=== PATIENT | female | born 1975 | race Caucasian/White ===

== ENCOUNTER 2016-05-19 07:53 | Observation (INO) | payer OTHER ==
[~2016-05-19] VITALS: Ht 165.1 cm; Wt 96.3 kg
[2016-05-19] VITALS (8 sets, daily range): BP systolic 121–175; BP diastolic 59–101; PULSE 84–129; RESP 13–20; O2SAT 97–100
[~2016-05-19 07:53] MED LIST: ACET250T4 PO; CHOL40003 PO; INSU100C8 SUBQ; INSU100V7 SUBQ; LEVO200T6 PO; MULT-666 PO; VENL150C98 PO
[2016-05-19] MEDS ORDERED: 0.9% Sodium Chloride 1,000 ML IV ONE ×2 (08:09→12:18)
--- NOTE | 2016-05-19 08:09 | ED.REPORT ---
HPI-NVD Date of Service May 19, 2016 ED Provider: Krista Romero MD A 40 year old female with a history of Type I diabetes, HTN, hypothyroidism, and migraines presents to the ED complaining of severe vomiting and generalized body pain onset 16 hours ago. Associated symptoms include fever, throat pain, and esophageal pain related to the vomit. She can not recall if she has had chills. Per nurse her sugar is 500 and 585 and Phenergan works fine. She takes diabetes medication in the morning. Patient reports that they would administer 5 units if her blood sugar was 500 at home. The members of her household have been sick. She denies being due to past bilateral tubal ligation surgery. Nursing Notes Stated Complaint: VOMITING Chief Complaint: Female Abdominal Pain Nursing Notes Reviewed: Yes Allergies: Coded Allergies: No Known Allergies (Verified , 05/19/16) Scheduled Acetazolamide (Acetazolamide) 250 Mg Tablet 500 MG PO QAM Acetazolamide (Acetazolamide) 250 Mg Tablet 250 MG PO HS Cholecalciferol (Vitamin D3) (Vitamin D3) 2,000 Unit Tablet 2,000 UNIT PO DAILY Fluoxetine (Fluoxetine) 20 Mg Capsule 20 MG PO QAM Insulin Glargine (Lantus U100 Insulin Vial) 100 Unit/Ml Vial 38 UNIT SUBQ AM Levothyroxine (Levothyroxine) 200 Mcg Tablet 200 MCG PO DAILY Multivitamin (Once Daily) 1 Each Tablet 1 EACH PO DAILY Scheduled PRN Insulin Aspart (NovoLOG U100 Insulin Vial) 100 U/Ml U 1-7 UNIT SUBQ TID PRN PRN sliding scale patient's own sliding scale General Time Seen by MD: 08:08 Chief Complaint Vomiting Hx Obtained From: Patient Arrived By: Walk-in Onset Occurred: 13 - 16 hours ago Symptom Duration: Constant Severity: Current: Moderate Severity: Maximum: Moderate Recent Healthcare: No recent doctor visit Similar Sx Previous: No Past Medical History Past Medical History Pseudo tumor cerebri hypothyroidism migraines Reports: Diabetes mellitus (Type 1), Hypertension Past Surgical History Lasix surgery ACL replacement x2 BTL Family History noncontributory Smoking History Never Smoker Social History Alcohol Use: Denies alcohol use Drug Use: Denies drug use Other Social History: Good social support, Local resident Ambulatory Status Independent Review of Systems Review of Systems Note: pain in throat related to vomiting. Constitutional: Reports: Fever, Denies: Chills GI: Reports: Vomiting Complete sys rev & neg: except as marked. Female: Denies: Physical Exam Physical Exam Notes: Initial Vital Signs Vital Signs (First) Date Time Temp Pulse Resp B/P Pulse Ox O2 Delivery O2 Flow Rate FiO2 05/19/16 07:58 35.8 129 20 175/101 100 05/19/16 09:05 05/19/16 11:12 Room Air Initial VS: Reviewed General/Constitutional: Awake, Alert Upon initial physical exam, patient is acutely ill, pale and vomiting. Abdomen: Soft, BS normoactive Good perfusion. Petechia in throat from vomiting. Minor erythema along posterior pharynx from vomiting. Muscous memrane dry. Respiratory / Chest: Atraumatic, Breath sounds NL, Breath sounds = bilat, No respiratory distress, No rales, No rhonchi Heart Rate / Rhythm: Positive: Tachycardia Back: Atraumatic, Full range of motion Skin: Atraumatic, Warm, Dry Neurologic: Oriented X3, Speech NL Head / Eyes: Normocephalic, PERRL, EOMI Small scratch along filitrim. Neck: Atraumatic, Full range of motion Upper Extremity / MS: Atraumatic, Full range of motion Wrist / Hand: Atraumatic, Full range of motion Lower Extremity / Pelvis / MS: Atraumatic, Full range of motion Ankle / Foot: No swelling (No swelling in ankles or other areas. ) Interpretation & Diagnostics Interpretation & Diagnostics: Blood Gas Report, 0826 (venous) pH 7.420 pCO2 26 pO2 40.6 cHCO3 - (p) 16.8 cBase (B) -5.7 Anion Gap= 32 Lab Results Interpretation Result Diagram: 05/19/16 0815 05/19/16 1300 Test 05/19/16 08:15 05/19/16 12:06 05/19/16 13:00 White Blood Count 18.7th/mm3 (3.8-10.1) Red Blood Count 4.74mil/mm3 (3.90-5.20) Hemoglobin 14.5g/dL (12.0-15.6) Hematocrit 41.4% (35.0-46.0) Mean Corpuscular Volume 87.3fL (81-100) Mean Corpuscular Hemoglobin 30.6pg (27.0-35.0) Mean Corpuscular Hemoglobin Concent 35.0% (32.0-37.0) Red Cell Distribution Width 12.1% (12.3-15.4) Platelet Count 339bil/L (150-400) Neutrophils (%) (Auto) 93.8% (40-74) Lymphocytes (%) (Auto) 3.3% (14-46) Monocytes (%) (Auto) 2.5% (4-12) Eosinophils (%) (Auto) 0% (0-5) Basophils (%) (Auto) 0.1% (0-3) Magnesium Level 1.8mg/dL (1.6-2.6) Total Bilirubin 0.7mg/dL (0.0-1.2) Aspartate Amino Transf (AST/SGOT) 19U/L (0-50) Alanine Aminotransferase (ALT/SGPT) 16U/L (0-32) Alkaline Phosphatase 128U/L (25-150) Total Protein 8.4g/dL (6.4-8.4) Albumin 5.0g/dL (3.4-5.0) Lipase 24U/L (13-60) Hold Urine Received (Received) Sodium Level 138mEq/L (134-144) Potassium Level 3.1mEq/L (3.5-5.2) Chloride Level 98mEq/L (97-108) Carbon Dioxide Level 19mmol/L (18-29) Blood Urea Nitrogen 23mg/dL (6-20) Creatinine 0.77mg/dL (0.57-1.00) Estimat Glomerular Filtration Rate 120mL/min (>59) Glucose Level 251mg/dL (60-99) Calcium Level 8.3mg/dL (8.5-10.1) ECG Interpretation ECG Interpretation: Rate is 113. Sinus Tachycardia. Borderline T abnormalities, diffuse leads. Time: 10:06 Interpreted by: ED physician Re-Eval/Medical Decision Med Decision/Clinical Course Presents with 18 hours of vomiting. Significantly dehydrated. Elevated blood sugar and initial anion gap is 31. After 3 days of hydration usual morning Lantus and an additional 10 units of IV insulin her blood sugar is sensitive to 50 range her anion gap has closed to the 21 range however she continues to feel nauseated and significantly dizzy when she stands up. Opted for at least overnight admission to make sure that her gap closes completely and she is rehydrated and we have appropriately helped with the presumed viral gastroenteritis that started all of her symptoms No evidence or suggestion for acute vomiting infection pneumonia and pancreatitis and biliary colic or appendicitis or other life-threatening issues at this point Source of Hx: Old records Re-Evaluation/Progress : Time of Eval: 12:05 Re-Evaluation/Progress Note: Rechecked patient. She reports that she has urinated describing it as being darker than normal. She reports that she has not thrown up and that nausea has decreased. Counseled Regarding: Diagnosis, Lab results, When/why to return to ED Discharge & Departure Impression: Primary Impression: Intractable vomiting Additional Impressions: DKA (diabetic ketoacidoses) Diabetes mellitus type I Disposition: ADMITTED TO HOSPITAL Discharge Condition All VS Reviewed: Yes Condition: Improved Referrals: Tiffanie Richard (PCP) [place] Attestation Portions of this note were transcribed by Yobany Holland. I, Dr. Romero, personally performed the history, physical exam, and medical decision-making: I reviewed and confirmed the accuracy for the information in the transcribed note. Signed by: marietta Waggoner, 05/19/16 1535. copies to: Tiffanie Richard Shawna L MD May 19, 2016 08:09 Yobany Holland May 19, 2016 08:22 Krista Romero MD May 19, 2016 08:09 Yobany Holland May 19, 2016 08:22
[2016-05-19] MEDS ORDERED: Ondansetron 2 mg/mL 2 mL Inj IVPUSH ONE (08:10)
[2016-05-19] MEDS ORDERED: 0.9% Sodium Chloride 1,000 ML IV STA (08:17)
[2016-05-19] MEDS ORDERED: Promethazine Inj 25 MG in Dextrose 5%-Pha MIX 50 ML IV ONE (08:20)
[2016-05-19] MEDS ORDERED: Insulin GLARgine 100 Unit/mL Syringe SUBQ ONE ×2 (08:20→20:20)
[2016-05-19] MEDS ORDERED: Insulin Human REGular-Omnicell 100 Unit/mL IV ONE ×2 (08:20→12:20)
[2016-05-19] MEDS ORDERED: HYDROmorphone 1 mg/mL Inj IVPUSH ONE (08:20)
[2016-05-19 08:26] LABS: BASOPHILS % (AUTO) 0.1 % (0-3); EOSINOPHILS % (AUTO) 0 % (0-5); MONOCYTES % (AUTO) 2.5 % (4-12); Mean Corpuscular Hemoglobin 30.6 pg (27.0-35.0); Mean Corpuscular Volume 87.3 fL (81-100); NEUTROPHILS % (AUTO) 93.8 % (40-74); Platelet Count 339 bil/L (150-400)
--- NOTE | 2016-05-19 08:32 | ABG ---
DateTimeAnalyzed 08:26:00 -_ pH ____7.420 - pCO2 ___26.4__ -mmHg pO2 ___40.6__ -mmHg HCO3- ___16.8__ -mmol/L ABE ___-5.7__ -mmol/L tHb ___14.5__ -g/dL O2Hb ___79.5__ -% COHb ____2.2__ -% MetHb ____1.0__ -% sO2 ___82.1__ -% FIO2 ___21.0__ -% Drawn By RN - Date/Time Notified____ 08:32:00 -_ Notified By JJ - Notified Whom DR LAURSEN - B 752 -mmHg tO2 ___16.1__ -Vol%
[2016-05-19 08:45] LABS: Magnesium 1.8 mg/dL (1.6-2.6)
[2016-05-19] MEDS ORDERED: Promethazine Inj 25 MG in 0.9% Sodium Chloride 50 ML IV ONE (12:20)
[2016-05-19] MEDS ORDERED: FLUO20CA25 PO (13:58)
[2016-05-19] MEDS ORDERED: ACET250T4 PO ×2 (13:58)
[2016-05-19] MEDS ORDERED: CHOL200025 PO (13:58)
[2016-05-19] MEDS: 0.9% Sodium Chloride 1,000 ML IV SCH ×4 (15:34→21:34)
[2016-05-19] MEDS ORDERED: Alum-Mag Hydrox-Simeth 30 mL Suspension PO PRN (15:35)
[2016-05-19] MEDS ORDERED: Ondansetron 2 mg/mL 2 mL Inj IVPUSH PRN ×2 (15:35→16:45)
[2016-05-19] MEDS ORDERED: Senna-Docusate 8.6-50 mg Tablet PO PRN (16:45)
[2016-05-19] MEDS ORDERED: Dextrose 5% 0.9% NaCl 1,000 ML IV SCH (16:45)
[2016-05-19] MEDS ORDERED: Polyethylene Glycol (PEG) 17 Gm Powder PO PRN (16:45)
[2016-05-19] MEDS ORDERED: Potassium Chloride Inj 20 MEQ in Dextrose 5% 250 ML IV ONE (16:45)
[2016-05-19] MEDS ORDERED: Glucose 40% Oral Gel 15 Gm Tube PO PRN (16:45)
--- NOTE | 2016-05-19 17:15 | PCM.HPMED ---
Subjective Date of Service May 19, 2016 Primary Provider: Admitting Physician: Ander Valadez MD Primary Care Physician: Tiffanie Richard Attending Physician: Ander Valadez MD Admit Status: From the Emergency Department, Full Admit, Admit to Yellow Team Chief Complaint: Nausea, vomiting. Hyperglycemia. History of Present Illness: This is a 40-year-old female history of DM type I. She presents now with several day history of URI symptoms including rhinorrhea and a dry cough. 2 children and her entire family has been ill. Today she developed hyperglycemia as well as acute nausea with repeated vomiting. She has a takes 34 units of Lantus once a day with correctional and nutritional lispro. She acted normal doses of insulin yesterday. She was found in the ER to be hypotensive and volume depleted as well as hyperglycemic. Her nasal initial pH was 74 however she had a PCO2 of 20 and a bicarbonate of 6 indicating a compensated metabolic acidosis. She was given IV fluids and developed a hypokalemia in the ED. She was also given IV insulin. She historically has no retinopathy, nephropathy, or neuropathy. She has had multiple instances of DKA in the past when she is ill. She is currently feeling free of nausea. She feels much improved with fluid resuscitation. She is afebrile. Review of Systems: No visual changes or hearing loss. She denies fevers chills rhinitis. No headache currently. No hematuria or dysuria. She denies any shortness of breath or productive cough. No abdominal pain. No diarrhea. Also reviewed and otherwise negative except as noted in history of present illness. Allergies Coded Allergies: No Known Allergies (Verified , 05/19/16) Home Medications Acetazolamide (Acetazolamide) 250 Mg Tablet 500 MG PO QAM Acetazolamide (Acetazolamide) 250 Mg Tablet 250 MG PO HS Cholecalciferol (Vitamin D3) (Vitamin D3) 2,000 Unit Tablet 2,000 UNIT PO DAILY Fluoxetine (Fluoxetine) 20 Mg Capsule 20 MG PO QAM Insulin Glargine (Lantus U100 Insulin Vial) 100 Unit/Ml Vial 38 UNIT SUBQ AM Levothyroxine (Levothyroxine) 200 Mcg Tablet 200 MCG PO DAILY Multivitamin (Once Daily) 1 Each Tablet 1 EACH PO DAILY PMH 1. DM 1. 2. Hypothyroidism 3. Migraine headaches. Surgical History section Bilateral knee arthroscopy. Family History Negative for diabetes Social History Hx Alcohol Use: Yes Hx Substance Use: No Hx Tobacco Use: No Smoking Status: Never Smoker Living Arrangement: with Family Exam Vital Signs Vital Sign - Last Date Time Temp Pulse Resp B/P Pulse Ox O2 Delivery O2 Flow Rate FiO2 05/19/16 15:39 37.5 107 16 122/64 Room Air 05/19/16 13:35 99 05/19/16 09:05 Exam Alert oriented 3, no distress. Fluent speech. Normal skull Normal nose and ears, external Anicteric sclerae, symmetric pupils Normal oropharynx and mucosa. Neck is supple, normal thyroid, no adenopathy. Lungs are clear with normal rate and effort. Heart is regular without murmur gallop or rub Abdomen soft nontender. Extremities are free of edema. Pedal and radial pulses. Joints are not swollen or deformed. Skin is free of rash, lesions or ecchymosis. Muscles normal strength. Cranial nerves are intact. Normal affect Lab and Diagnostics Result Diagram: 05/19/16 0815 05/19/16 1300 Assessment & Plan 1. Probable DKA. POA. The patient presented with hyperglycemia vomiting Depletion and a compensated metabolic acidosis. Ketones were not checked. She was given IV insulin and fluid resuscitated and now has closed or improved her gap. At this point we will fluid resuscitate her and give her high correctional lispro as well as checking a ketone. She still may require an insulin drip tonight. 2. Recent URI symptoms, POA. We will check a chest x-ray rule out pneumonia as well as adult respiratory PCR panel. 3. Volume depletion, POA. Fluid resuscitation with normal saline. 4. Hypokalemia, POA. We will replete and follow closely 5. Chronic hypothyroidism, POA. Usual medications. She is full resuscitation clarified at time of admit Inpatient status with the expected length of stay over 2 nights Pain Evaluation: Adequate Pain Control Resuscitation Status: CPR: Attempt Resuscitation Time spent 40 minutes Ander Valadez MD May 19, 2016 17:15
[2016-05-19] MEDS: Insulin LISPRO 300 Unit/3 mL Inj SUBQ SCH ×2 (17:30→21:40)
--- NOTE | 2016-05-19 18:08 | DRSVH ---
PROCEDURE: X-RAY CHEST ONE VIEW, PORTABLE ([id number]) INDICATIONS: cough TECHNIQUE: One view of the chest was acquired. COMPARISON: [facility], CR, CHEST 1VW, 08/31/2013, 10:31. [facility], [place], XR CHEST 2VW, 04/09/2015, 14:32. FINDINGS: Surgical changes and devices: None. Lungs and pleura: No pleural effusions or pneumothorax. Lungs are clear. Mediastinum: Mediastinal contours appear normal. Heart size is normal. Bones and chest wall: No suspicious bony lesions. Overlying soft tissues appear unremarkable. IMPRESSION: No acute pulmonary process. Dictated by: Georgette Gerber M.D. on 05/19/2016 at 18:06 Approved by: Georgette Gerber M.D. on 05/19/2016 at 18:06
[2016-05-19] MEDS ORDERED: Insulin GLARgine 100 Unit/mL Syringe SUBQ SCH (21:00)
[2016-05-20] MEDS ORDERED: KCl 40 mEq/500 mL D5W(K 3 - 3.7 & Creat < 2) IV ONE ×2 (00:10→06:45)
[2016-05-20 00:17] VITALS: BP 132/74; PULSE 81; RESP 18; O2SAT 98
[2016-05-20 04:28] VITALS: BP 131/78; PULSE 84; RESP 17; O2SAT 97
[2016-05-20] MEDS: 0.9% Sodium Chloride 1,000 ML IV SCH (06:19)
[2016-05-20 07:45] VITALS: BP 150/88; PULSE 86; RESP 19; O2SAT 99
[2016-05-20] MEDS ORDERED: Ondansetron 2 mg/mL 2 mL Inj IVPUSH PRN (08:30)
[2016-05-20] MEDS ORDERED: HYDROcodone-APAP 5-325 mg Tablet PO PRN (08:30)
[2016-05-20] MEDS ORDERED: Insulin GLARgine 100 Unit/mL Syringe SUBQ SCH (08:30)
--- NOTE | 2016-05-20 10:52 | PCM.DIMED ---
Discharge Instructions Date of Service May 20, 2016 Dates of Hospitalization May 19, 2016 at 14:41 Discharge Diagnosis Discharge Diagnosis 1. Probable DKA. 2. URI 3. Volume depletion 4. Hypokalemia 5. Chronic hypothyroidism 6. DM 1 Diet Diabetic Activity No restrictions Call your provider Fever or Chills, Shortness of breath Patient Instructions Follow-up Provider: Tiffanie Richard Follow-up with PCP in: 1 week Ander Valadez MD May 20, 2016 10:52
[2016-05-20] MEDS ORDERED: HYDR-4003 PO (10:53)
--- NOTE | 2016-05-20 10:59 | PCM.DC.MED ---
Discharge Summary Date of Service May 20, 2016 Dates of Hospitalization Date of Hospital Admission May 19, 2016 at 14:41 Date of Discharge: May 20, 2016 Providers: Admitting Physician: Jose Valadez MD Primary Care Physician: Tiffanie Richard Attending Physician: Jose Valadez MD Diagnosis at Time of Discharge Diagnosis at Time of Discharge 1. Probable DKA. 2. URI 3. Volume depletion 4. Hypokalemia 5. Chronic hypothyroidism 6. DM 1 Consultations None Procedures XRay, CTs & MRIs Chest x-ray unremarkable Other Diagnostics Adult respiratory PCR panel negative. Brief History This is a 40-year-old female history of DM type I. She presents now with several day history of URI symptoms including rhinorrhea and a dry cough. 2 children and her entire family has been ill. Today she developed hyperglycemia as well as acute nausea with repeated vomiting. She has a takes 34 units of Lantus once a day with correctional and nutritional lispro. She acted normal doses of insulin yesterday. She was found in the ER to be hypotensive and volume depleted as well as hyperglycemic. Her nasal initial pH was 74 however she had a PCO2 of 20 and a bicarbonate of 6 indicating a compensated metabolic acidosis. She was given IV fluids and developed a hypokalemia in the ED. She was also given IV insulin. She historically has no retinopathy, nephropathy, or neuropathy. She has had multiple instances of DKA in the past when she is ill. She is currently feeling free of nausea. She feels much improved with fluid resuscitation. She is afebrile. Hospital Course 1. Probable DKA. POA. The patient presented with hyperglycemia vomiting Depletion and a compensated metabolic acidosis. Ketones were not checked. She was given IV insulin and fluid resuscitated and now has closed or improved her gap. At this point we will fluid resuscitate her and give her high correctional lispro as well as checking a ketone. She still may require an insulin drip tonight. 2. Recent URI symptoms, POA. We will check a chest x-ray rule out pneumonia as well as adult respiratory PCR panel. 3. Volume depletion, POA. Fluid resuscitation with normal saline. 4. Hypokalemia, POA. We will replete and follow closely 5. Chronic hypothyroidism, POA. Usual medications. She is full resuscitation clarified at time of admit Inpatient status with the expected length of stay over 2 nights Hospital course. This patient was admitted after being treated in the ER for several hours with fluids and IV insulin. Breasts show pH is 7/4 PCO2 of 29 bicarbonate of 16 indicating a compensated metabolic acidosis. Ketones were not checked in the ER there checked about 6 hours layers were negative at this time. The patient was hyperglycemic was treated with IV insulin and then fluid resuscitated. She did develop hypokalemia which was repleted. The patient was transitioned to a cutaneous insulin in the evening of her admission and fluid resuscitation continued. Her potassium continued to be repleted in the morning of discharge. Her nausea and vomiting did improve. The day of discharge she was feeling mostly pain in the chest from coughing. No diarrhea. She is felt to be stable for discharge with close follow-up. Exam Vital Signs (Last) Date Time Temp Pulse Resp B/P Pulse Ox O2 Delivery O2 Flow Rate FiO2 05/20/16 07:45 36.9 86 19 150/88 99 Room Air 05/19/16 09:05 Exam Patient seen and examined in the day of discharge Test 05/19/16 08:15 05/19/16 12:06 05/19/16 13:00 05/20/16 05:30 White Blood Count 18.7th/mm3 (3.8-10.1) Red Blood Count 4.74mil/mm3 (3.90-5.20) Hemoglobin 14.5g/dL (12.0-15.6) Hematocrit 41.4% (35.0-46.0) Mean Corpuscular Volume 87.3fL (81-100) Mean Corpuscular Hemoglobin 30.6pg (27.0-35.0) Mean Corpuscular Hemoglobin Concent 35.0% (32.0-37.0) Red Cell Distribution Width 12.1% (12.3-15.4) Platelet Count 339bil/L (150-400) Neutrophils (%) (Auto) 93.8% (40-74) Lymphocytes (%) (Auto) 3.3% (14-46) Monocytes (%) (Auto) 2.5% (4-12) Eosinophils (%) (Auto) 0% (0-5) Basophils (%) (Auto) 0.1% (0-3) Hemoglobin A1c 9.2% (4.8-5.6) Magnesium Level 1.8mg/dL (1.6-2.6) Total Bilirubin 0.7mg/dL (0.0-1.2) Aspartate Amino Transf (AST/SGOT) 19U/L (0-50) Alanine Aminotransferase (ALT/SGPT) 16U/L (0-32) Alkaline Phosphatase 128U/L (25-150) Total Protein 8.4g/dL (6.4-8.4) Albumin 5.0g/dL (3.4-5.0) Lipase 24U/L (13-60) Hold Urine Received (Received) Ketones Negative (Negative) Sodium Level 139mEq/L (134-144) Potassium Level 3.3mEq/L (3.5-5.2) Chloride Level 106mEq/L (97-108) Carbon Dioxide Level 20mmol/L (18-29) Blood Urea Nitrogen 13mg/dL (6-20) Creatinine 0.69mg/dL (0.57-1.00) Estimat Glomerular Filtration Rate 136mL/min (>59) Glucose Level 107mg/dL (60-99) Calcium Level 7.5mg/dL (8.5-10.1) Discharge Medications Discharge Medications Acetazolamide (Acetazolamide) 250 Mg Tablet 500 MG PO QAM (Reported) Acetazolamide (Acetazolamide) 250 Mg Tablet 250 MG PO HS (Reported) Cholecalciferol (Vitamin D3) (Vitamin D3) 2,000 Unit Tablet 2,000 UNIT PO DAILY (Reported) Fluoxetine (Fluoxetine) 20 Mg Capsule 20 MG PO QAM (Reported) Insulin Glargine (Lantus U100 Insulin Vial) 100 Unit/Ml Vial 38 UNIT SUBQ AM ( Reported) Levothyroxine (Levothyroxine) 200 Mcg Tablet 200 MCG PO DAILY (Reported) Multivitamin (Once Daily) 1 Each Tablet 1 EACH PO DAILY (Reported) As needed Hydrocodone-Acetaminophen 5-325 mg (Hydrocodone-Acetaminophen 5-325 mg) 1 Each Tablet 2 TABLET PO Q4 PRN PRN For Moderate Pain Prescribed by: JOSE VALADEZ MD Insulin Aspart (NovoLOG U100 Insulin Vial) 100 U/Ml U 1-7 UNIT SUBQ TID PRN PRN sliding scale (Reported) patient's own sliding scale Followup Plan Disposition: Home, with family Discharge Diet: Diabetic Discharge Activity: No restrictions Follow-up Provider: Tiffanie Richard Follow-up with PCP in: 1 week Time spent 40 minutes Jose Valadez MD May 20, 2016 10:59
[2016-05-20] MEDS ORDERED: Potassium Citrate ER 10 mEq ER24 Tablet PO SCH (11:00)
[2016-05-20] MEDS: Insulin LISPRO 300 Unit/3 mL Inj SUBQ SCH ×2 (11:39→13:00)
== END 2016-05-20 13:50 | disposition home or self-care (01) ==
LOC: SED 07:53 → PCC 14:41 → INTOOBSV 14:41 → CCU 16:48 → PCC 23:49
PROVIDERS: ADMIT Hospitalist; ATTEND Hospitalist
DX: R11.2 Nausea with vomiting, unspecified (principal); E10.65 Type 1 diabetes mellitus with hyperglycemia; E86.9 Volume depletion, unspecified; E87.6 Hypokalemia; J06.9 Acute upper respiratory infection, unspecified; E03.9 Hypothyroidism, unspecified; G43.909 Migraine, unspecified, not intractable, without status migrainosus; Z79.4 Long term (current) use of insulin; Z79.899 Other long term (current) drug therapy

== ENCOUNTER 2016-11-24 08:17 | Inpatient (IN) | payer OTHER ==
[~2016-11-24] VITALS: Ht 165.1 cm; Wt 72.7 kg
[~2016-11-24 08:17] MED LIST changes: +CHOL200025 PO; -CHOL40003 PO; +FLUO20CA25 PO; +HYDR-4003 PO; -VENL150C98 PO
[2016-11-24 08:23] VITALS: BP 166/96; PULSE 129; RESP 23; O2SAT 99
[2016-11-24] MEDS ORDERED: Ondansetron 2 mg/mL 2 mL Inj IVPUSH PRN ×2 (08:35→10:30)
[2016-11-24] MEDS ORDERED: 0.9% Sodium Chloride 1,000 ML IV ONE (08:35)
[2016-11-24] MEDS ORDERED: MetoCLOpramide 5 mg/mL 2 mL Inj IVPUSH ONE (08:35)
--- NOTE | 2016-11-24 08:39 | ED.REPORT ---
HPI-Abd Pain F 40 and Over Date of Service Nov 24, 2016 ED Provider: Demetrius Valerio MD Pt is a 41 year old female with a history of type I DM who presents to the ED complaining of vomiting onset yesterday morning. She c/o associated nausea, abdominal pain, and low back pain. She denies hematuria, diarrhea, and dysuria. Per pt, she has not had a BM today. The pt reports that she did not experience abdominal or back pain until after she vomited. She has experienced similar symptoms previously when she was ill. Nursing Notes Stated Complaint: VOMITING Chief Complaint: Female Abdominal Pain Nursing Notes Reviewed: Yes Allergies: Coded Allergies: No Known Allergies (Verified , 11/24/16) Scheduled Acetazolamide (Acetazolamide) 250 Mg Tablet 500 MG PO QAM Acetazolamide (Acetazolamide) 250 Mg Tablet 250 MG PO HS Cholecalciferol (Vitamin D3) (Vitamin D3) 2,000 Unit Tablet 2,000 UNIT PO DAILY Fluoxetine (Fluoxetine) 20 Mg Capsule 20 MG PO QAM Insulin Glargine (Lantus U100 Insulin Vial) 100 Unit/Ml Vial 38 UNIT SUBQ AM Levothyroxine (Levothyroxine) 200 Mcg Tablet 200 MCG PO DAILY Multivitamin (Once Daily) 1 Each Tablet 1 EACH PO DAILY Scheduled PRN Hydrocodone-Acetaminophen 5-325 mg (Hydrocodone-Acetaminophen 5-325 mg) 1 Each Tablet 2 TABLET PO Q4 PRN PRN For Moderate Pain Insulin Aspart (NovoLOG U100 Insulin Vial) 100 U/Ml U 1-7 UNIT SUBQ TID PRN PRN sliding scale patient's own sliding scale General Time Seen by MD: 08:34 Chief Complaint Vomiting moderate Hx Obtained From: Patient Arrived By: Walk-in Sudden in Onset?: Yes Onset Occurred: Yesterday Symptom Duration: Since onset Location: : Diffuse Quality: Painful Radiation: : Does not radiate Severity: Current: Moderate Severity: Maximum: Moderate Recent Healthcare: No recent doctor visit, No recent hospitalization Similar Sx Previous: Yes Past Medical History Past Medical History Pseudo tumor cerebri hypothyroidism migraines Denies heart disease Denies lung disease Reports: Diabetes mellitus (type I), Hypertension Past Surgical History Lasix surgery ACL replacement x2 BTL Family History noncontributory Smoking History Never Smoker Social History Alcohol Use: Denies alcohol use Drug Use: Denies drug use Other Social History: Good social support, Local resident Ambulatory Status Independent Review of Systems GI: Reports: Abdominal pain, Vomiting, Denies: Diarrhea Female: Denies: Dysuria, Hematuria Musculoskeletal: Reports: Back pain Complete sys rev & neg: except as marked. Physical Exam Vital Signs Vital Signs (First) Date Time Temp Pulse Resp B/P Pulse Ox O2 Delivery O2 Flow Rate FiO2 11/24/16 08:23 36.8 129 23 166/96 99 Room Air Initial VS: Reviewed Head / Eyes: Atraumatic, Normocephalic Neck: Supple, Full range of motion Extremities: Vascular intact, Neuro intact Skin: Warm, Dry, No cyanosis Neurologic: Alert, Oriented, Nonfocal Psychiatric: Mood/affect normal, Behavior normal General/Constitutional: Awake, Alert Respiratory / Chest: Atraumatic, Breath sounds NL, Breath sounds = bilat Cardiovascular: Regular rhythm, Heart sounds NL Heart Rate / Rhythm: Positive: Tachycardia (110) Abdomen: Atraumatic, Soft, Non-tender Back: Atraumatic, Full range of motion Interpretation & Diagnostics Lab Results Interpretation Result Diagram: 11/24/16 0840 11/24/16 0840 Test 11/24/16 08:40 11/24/16 10:19 White Blood Count 19.7th/mm3 (3.8-10.1) Red Blood Count 4.90mil/mm3 (3.90-5.20) Hemoglobin 15.3g/dL (12.0-15.6) Hematocrit 44.1% (35.0-46.0) Mean Corpuscular Volume 90.0fL (81-100) Mean Corpuscular Hemoglobin 31.2pg (27.0-35.0) Mean Corpuscular Hemoglobin Concent 34.7% (32.0-37.0) Red Cell Distribution Width 12.6% (12.3-15.4) Platelet Count 319bil/L (150-400) Neutrophils (%) (Auto) 93.2% (40-74) Lymphocytes (%) (Auto) 2.4% (14-46) Monocytes (%) (Auto) 4.0% (4-12) Eosinophils (%) (Auto) 0% (0-5) Basophils (%) (Auto) 0.1% (0-3) Sodium Level 136mEq/L (134-144) Potassium Level 4.9mEq/L (3.5-5.2) Chloride Level 86mEq/L (97-108) Carbon Dioxide Level 16mmol/L (18-29) Blood Urea Nitrogen 20mg/dL (6-20) Creatinine 1.07mg/dL (0.57-1.00) Estimat Glomerular Filtration Rate 82mL/min (>59) Glucose Level 625mg/dL (60-99) Calcium Level 9.7mg/dL (8.5-10.1) Magnesium Level 1.8mg/dL (1.6-2.6) Total Bilirubin 0.9mg/dL (0.0-1.2) Aspartate Amino Transf (AST/SGOT) 39U/L (0-50) Alanine Aminotransferase (ALT/SGPT) 29U/L (0-32) Alkaline Phosphatase 141U/L (25-150) Total Protein 8.3g/dL (6.4-8.4) Albumin 4.5g/dL (3.4-5.0) Lipase 9U/L (13-60) Urine Color Straw (YELLOW) Urine Appearance Hazy (CLEAR,HAZY) Urine pH 5.5 (5.0-8.0) Urine Specific [place] 1.015 (1.003-1.035) Urine Protein 30mg/dL (NEG,TRACE) Urine Glucose (UA) 1000mg/dL (NEGATIVE) Urine Ketones 80mg/dL (NEGATIVE) Urine Occult Blood Small (NEGATIVE) Urine Nitrite Negative (NEGATIVE) Urine Bilirubin Negative (NEGATIVE) Urine Urobilinogen Normalmg/dL (NORMAL) Urine Leukocyte Esterase Negative (NEGATIVE) Urine RBC 0-2/hpf (0-2) Urine WBC 0-5/hpf (0-5) Urine Epithelial Cells Occasional/hpf (NONE-MOD) Urine Crystals None seen (NONE SEEN) Urine Bacteria None/hpf (NONE-FEW) Urine Hyaline Casts None/lpf (NONE) Urine Granular Casts None seen (NONE SEEN) Urine Waxy Casts None seen (NONE SEEN) Urine Red Blood Cell Casts None seen (NONE SEEN) Urine White Blood Cell Casts None seen (NONE SEEN) Urine Mucus None seen (None Seen) Urine Trichomonas None seen (NONE SEEN) Urine Yeast None (NONE SEEN) Urinalysis Comment None Urine Culture Reflexed Not indicated Re-Eval/Medical Decision Source of Hx: Old records Re-Evaluation/Progress : Time of Eval: 10:12 Re-Evaluation/Progress Note: Pt rechecked. Informed pt of results and plan for admission. Pt understands and agrees with plan for admission. All questions addressed. Consultation : Referral / Consult Name: Heber Mitchell MD Consulted With: Hospitalist Call Returned at: 10:24 [employer]: Will see patient, Agrees with eval, Agrees with plan, Accepts admit Counseled Regarding: Diagnosis, Lab results, Need for admission Discharge & Departure Primary Impression: DKA (diabetic ketoacidoses) Diabetes mellitus type: type 1 Diabetes mellitus complication detail: without coma Qualified Code: E10.10 - Type 1 diabetes mellitus with ketoacidosis without coma Disposition: ADMITTED TO HOSPITAL Discharge Condition All VS Reviewed: Yes Condition: Stable Referrals: Tiffanie Richard (PCP) Jorden Attestation Portions of this note were transcribed by Vanessa Wheeler. I, Dr. Valerio personally performed the history, physical exam and medical decision-making; I reviewed and confirmed the accuracy of the information in the transcribed note. Signed by: Jorden German, 11/24/16. copies to: Tiffanie Richard Kirk H MD Nov 24, 2016 08:39 Vanessa Flor Nov 24, 2016 08:40
[2016-11-24] MEDS ORDERED: Ketorolac 15 mg/mL Inj IVPUSH ONE (08:55)
[2016-11-24] MEDS ORDERED: HYDROmorphone 0.5 mg/0.5 mL iSecure Syringe IVPUSH ONE (08:55)
[2016-11-24] MEDS ORDERED: Acetaminophen IV 1,000 MG in IV Premix 1 EACH IV ONE (08:55)
[2016-11-24 09:03] LABS: BASOPHILS % (AUTO) 0.1 % (0-3); EOSINOPHILS % (AUTO) 0 % (0-5); Mean Corpuscular Hemoglobin 31.2 pg (27.0-35.0); NEUTROPHILS % (AUTO) 93.2 % (40-74); Platelet Count 319 bil/L (150-400)
[2016-11-24 09:18] LABS: Magnesium 1.8 mg/dL (1.6-2.6)
[2016-11-24] MEDS ORDERED: 0.9% Sodium Chloride 1,000 ML IV SCH (10:10)
[2016-11-24] MEDS ORDERED: D5W1/2NS 1,000 mL IV PRN (10:15)
[2016-11-24] MEDS ORDERED: Insulin Human REGular 300 Unit/3 mL Inj IV PRN (10:15)
[2016-11-24] MEDS ORDERED: Polyethylene Glycol (PEG) 17 Gm Powder PO PRN (10:30)
[2016-11-24 10:47] LABS: APPEARANCE,URINE HAZY (CLEAR,HAZY); COLOR,URINE STRAW (YELLOW); OCCULT BLOOD,URINE SMALL (NEGATIVE); PH,URINE 5.5 (5.0-8.0); UROBILINOGEN,URINE NORMAL (NORMAL)
[2016-11-24] MEDS: Insulin Human REGular 100 Units/100 mL NS IV SCH ×2 (11:25)
--- NOTE | 2016-11-24 13:37 | PCM.HPMED ---
Subjective Date of Service Nov 24, 2016 Primary Provider: Admitting Physician: Heber Mitchell MD Primary Care Physician: Tiffanie Richard Attending Physician: Heber Mitchell MD Admit Status: From the Emergency Department, Admit to [facility] Team Chief Complaint: 41-year-old woman with long-standing type I diabetes presents with nausea vomiting and metabolic acidosis History of Present Illness: The patient has had type I diabetes since approximately age of 5. She is managed with glargine 40 units each morning and multiple daily NovoLog injections of approximately 4-10 units. She performs carbohydrate 8 units per gram and correction insulin. She was in her usual state of health until she developed gastrointestinal malaise is 3 days prior to admission. One child at home has had a recent diarrheal illness. Denies prior to admission she began vomiting. Due to her inability to take food she stopped all of her insulin. She continued to have intractable vomiting with inadequate fluid intake, and presented to the emergency department with nausea vomiting and recognizable symptoms of DKA. Patient endorses a history of frequent abdominal pain nausea and vomiting, uncertain cause. She has had no other signs of focal infection recently. She was taking medications regularly until 2 days prior to admission. She has had DKA approximately 6 times over her lifetime. Curiously the episodes of accelerated in the recent 10 years. She has no microvascular complications of diabetes. No other recent health problems. Review of Systems: 11 system ROS performed with significant findings as noted in history of present illness. Her depression is clinically in remission. Her pseudotumor cerebri is also stable, with normal intracranial pressure on her most recent LP. She is recently discontinued Acetazolamide. Allergies Coded Allergies: No Known Allergies (Verified , 11/24/16) Home Medications Cholecalciferol 2000 units daily Fluoxetine 20 mg daily Hydrocodone-acetaminophen 5/325 2 tablets every 4 hours when necessary Glargine insulin 40 units every morning Insulin aspart 4-10 units 3 times a day when necessary Levothyroxine 200 g daily PMH # Type I diabetes mellitus # Pseudotumor cerebri # Hypo-thyroidism # Depression # Chronic musculoskeletal pain Family History Mother pseudotumor cerebri Father minus Senior Gravis Half-brother with PUD Social History Occupation: mom, part-time housecleaning. Hx Alcohol Use: Yes Hx Substance Use: No Hx Tobacco Use: No Smoking Status: Never Smoker Additional Information Supportive at home. No exercise program. Exam Vital Signs Vital Sign - Last Date Time Temp Pulse Resp B/P Pulse Ox O2 Delivery O2 Flow Rate FiO2 11/24/16 08:23 36.8 129 23 166/96 99 Room Air Exam General: Well-nourished middle-age woman in no acute distress HEENT: sclerae anicteric, oral mucosa moist Neck: no JVD Chest: clear to auscultation Cardiac: S1S2, no murmur Abdomen: BS normal, non-tender Extremities: No pitting edema Neuro: A&O, funduscopic exam normal, cranial nerves symmetric, motor strength 5/ 5, coordination normal Lab and Diagnostics Labs TSH 73.38 Magnesium 1.5 Result Diagram: 11/24/16 0840 11/24/16 1240 Assessment & Plan 41-year-old woman with type I diabetes presents with acute DKA possibly related to gastroenteritis. # Diabetic ketoacidosis, acute, present on admission. - Acute intravenous insulin DKA protocol; BMP every 4 hours - IV normal saline 250 mL per hour 2 L then continue with normal saline 100 mL per hour with additional D5-D10 according to DKA protocol - When gap is closed, initiate diabetic diet, 4 times a day capillary blood glucose - hopefully in a.m. on 11/25 - Subcutaneous diabetic patient goals: Random glucose less than 180, fasting less than 140, none less than 70 - Insulin as needed, divided 50-50 long-acting and nutritional/correctional - Review sick day and home management of incipient DKA (continuation of basal insulin, hydration, correctional insulin, antiemetics) with patient prior to discharge # Systemic inflammatory response, present on admission, acute. WBC 19.7. Heart rate 129, respiratory rate 23, afebrile with stable blood pressure. Largely stress response to acute DKA. Possible viral gastroenteritis but no evidence for bacterial sepsis - Vital sign monitor with aggressive fluid hydration # Gastroenteritis, acute, present on admission. None diarrheal illness with predominantly nausea and vomiting. - Antiemetics and hydration # Hypothyroidism, acute on chronic. TSH is markedly elevated indicating poor compliance with levothyroxine 200 g per day ambulatory dose. - Continue oral levothyroxine 200 g per day - Reviewed dosing conditions and compliance issues Resolving, stable and/or chronic problems: # Recurrent abdominal pain nausea and vomiting # Pseudotumor cerebri, chronic. -Stable # Chronic musculoskeletal pain. - Continue her outpatient prescription for Percocet Pain Evaluation: Adequate Pain Control VTE Prophylaxis: Sub-Q Enoxaparin Resuscitation Status: CPR: Attempt Resuscitation Time spent 70 minutes Heber Mitchell MD Nov 24, 2016 13:37
[2016-11-24] MEDS ORDERED: FLUO40CA PO (13:40)
[2016-11-24 13:57] VITALS: BP 165/80; PULSE 120; RESP 23; O2SAT 99
[2016-11-24 13:58] VITALS: BP 165/80; PULSE 120; RESP 23; O2SAT 99
[2016-11-24 14:04] VITALS: BP 132/74; PULSE 121; RESP 15; O2SAT 99
[2016-11-24] MEDS: 0.9% Sodium Chloride 1,000 ML IV SCH ×2 (14:04→14:27)
--- NOTE | 2016-11-24 14:04 | NUR ---
admit nurse note patient admission completed except physical assessment on admission to be completed per primary RN. home medication list updated. noted that MD had already ordered home medications from list. notified Dr. Mitchell that list updated and that patient no longer takes acetazolamide and that fluoxetine dose increased to 40mg po daily instead of 20m. MD to adjust orders per updated home med list. patient screens positive for sleep apnea. pirmary rn gladys hale notified and problem added to care plan.
[2016-11-24] MEDS ORDERED: POTASSIUM CHLORIDE IV SCH (16:40)
[2016-11-24] MEDS: D5 0.9% NaCl + KCl 20 mEq/L 1,000 ML IV SCH ×2 (16:40→22:30)
[2016-11-24] MEDS ORDERED: SODIUM CHLORIDE 0.45% IV SCH (16:40)
--- NOTE | 2016-11-24 16:48 | NUR ---
Social Work: Screen D: Per EMR review, pt is a 41 year old female admitted for DKA. Pt is [employer] insurance. PCP is GUICHO Vaughn. NOK is Roxann Matamoros, spouse, . Advanced directives requested by admit RN. No RA Score entered at this time. Pt lives in [place] with her spouse. Pt has type I diabetes and has been hospitalized several other times for DKA. Patient is normally I at baseline and lives at home with her spouse. Pt is ambulating I in her room. No sw needs or barriers identified at this time. Pt does not screen in for assessment at this time. A: Pt who is I at baseline. P: Evolving; Anticipate pt to discharge home via POV once medically stable. 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 PAM Rocha
[2016-11-24] MEDS: cloNIDine 0.1 mg Tablet PO SCH ×2 (16:50→21:20)
[2016-11-24] MEDS: Alum-Mag Hydrox-Simeth 30 mL Suspension PO PRN (17:46)
--- NOTE | 2016-11-24 18:29 | NUR ---
Admit/Insulin/Sugars The pt arrived to the unit around 1300 from the ED - the pt arrived A&Ox3 with VSS. Throughout the shift, the pt's blood sugars trended down, with the last three values of 159, 173 and 162. The pt continues on DKA protocol, with Insulin currently at 3.6mL/hr and D5 1/2 NS at 110mL/hr; per protocol. Per Dr. Mitchell, the pt is also on 100mL/hr NS for hydration. The pt is taking in PO clear, non-caloric fluids - tolerating well. For a few hours, the pt became hypertensive, with systolic pressures of 173 and 183 - MD notified, and PO clonidine ordered for pressures >150 systolic. Pressures dropped on their own without PO meds. The pt is currently A&Ox3, voiding well independently with VSS.
[2016-11-24 20:29] VITALS: BP 152/80; PULSE 108; RESP 16; O2SAT 99
[2016-11-24] MEDS ORDERED: Famotidine Inj 20 MG in IV Premix 1 EACH IV SCH (20:30)
[2016-11-24] MEDS ORDERED: acetaZOLAMIDE 250 mg Tablet PO SCH (21:00)
[2016-11-24] MEDS ORDERED: Potassium Chloride 20 mEq SR Tablet PO ONE (21:35)
--- NOTE | 2016-11-24 23:40 | NUR ---
discomfort pt with some throat pain and generalized discomfort, called and received order for PO tylenol, gave with good results
[2016-11-25 00:03] VITALS: BP 143/85; PULSE 95; RESP 20; O2SAT 96
--- NOTE | 2016-11-25 01:30 | NUR ---
potassium pts potassium 2.9 called received order for 40mEq KCL PO potassium, gave f/u BNP potassium was 3.4 will cont to monitor Addendum: 11/25/16 at 0557 by JAZ KING RN potassium 3.3 this morning, [facility] potassium running no new orders at this time
[2016-11-25] MEDS: Insulin Human REGular 100 Units/100 mL NS IV SCH ×2 (03:48)
[2016-11-25 03:49] VITALS: BP 138/78; PULSE 87; RESP 17; O2SAT 98
[2016-11-25] MEDS: Alum-Mag Hydrox-Simeth 30 mL Suspension PO PRN (04:44)
--- NOTE | 2016-11-25 05:57 | NUR ---
anion gap/BG pts BG was hard to control this shift, dropping below 100 a few times, pts potassium low, D5NS with 20MeQ KCL at 100cc/hr running, pt with good UOP, pts anion gap this morning is 13 informed the night . tele SR rate 80s SBP less then 150. pt with intermittent throat pain she describes it as a crampy pain, tylenol, maalox and Pepcid given pt feels like the Pepcid helped the most.
[2016-11-25] MEDS ORDERED: Glucose 40% Oral Gel 15 Gm Tube PO PRN (07:15)
[2016-11-25] MEDS ORDERED: Insulin LISPRO 300 Unit/3 mL Inj SUBQ SCH (08:00)
[2016-11-25] MEDS ORDERED: ONDA8TAB7 PO (08:19)
--- NOTE | 2016-11-25 08:25 | PCM.DIMED ---
Discharge Instructions Date of Service Nov 25, 2016 Dates of Hospitalization Nov 24, 2016 at 12:19 Discharge Diagnosis Discharge Diagnosis Diabetic ketoacidosis; Gastroenteritis; Type I diabetes mellitus; Hypothyroidism Medication Instructions Additional med instructions The thyroid hormone level is very low. You should take your levothyroxine very regularly on an empty stomach. It should be at least 2 hours after any previous food or complex beverage, and at least one hour prior to any further food, beverages or pills. It is important that you get into a regular routine that allows her thyroid hormone to be absorbed well by your body. You should have a recheck of her thyroid hormone level in approximately 4-6 weeks. Diet Discharge Diet: Diabetic Activity Discharge Activity: No restrictions Patient Instructions Patient Instructions You should take your glargine insulin every day. If you experience nausea vomiting you may reduce the dose temporarily to 26 units. Take at least this much no matter other you are eating. If you experience nausea and vomiting, he should try to maintain hydration as best you can with small sips of fluid continuously. We should check your blood sugar every 1-2 hours and take your correctional NovoLog dose at each time (every 1-2 hours) to keep your blood sugar under 200 until you are feeling well and resuming normal food and insulin. This regimen should prevent you from slipping into DKA. Follow-up plan A referral to endocrinology for diabetes and thyroid management has been previously submitted and should be scheduled. Contact gynecology clinic if you do not have a date for this appointment within the next month. Follow-up Provider: Tiffanie Richard Follow-up with PCP in: 1 week Provider: Heber Mitchell MD Follow-up in: Other (scheduled upcoming endocrinology clinic within 1 month) Heber Mitchell MD Nov 25, 2016 08:23
[2016-11-25] MEDS: cloNIDine 0.1 mg Tablet PO SCH (08:30)
[2016-11-25] MEDS ORDERED: Insulin GLARgine 100 Unit/mL Syringe SUBQ SCH (08:30)
[2016-11-25] MEDS ORDERED: acetaZOLAMIDE 250 mg Tablet PO SCH (08:30)
[2016-11-25 08:33] VITALS: BP 146/81; PULSE 89; RESP 14; O2SAT 99
[2016-11-25] MEDS ORDERED: LEVO112T4 PO ×2 (11:43→16:00)
--- NOTE | 2016-11-25 12:35 | NUR ---
Discharge Note: Discussed discharge instructions and medications with patient and her . Pt verbalized understanding of follow up appointments. Tele: Sinus 80s. Denies CP, SOB or dizziness. Tolerating PO intake without report of N/V/D. (See DKA insulin Protocol flowsheet for glucose trend). IV DCd intact by RN. Ambulating in room independently with strong/steady gait. Patient was walked off unit and to a personal vehicle with all personal belongings and was transported home by her .
--- NOTE | 2016-11-25 15:57 | PCM.DC.MED ---
Discharge Summary Date of Service Nov 25, 2016 Dates of Hospitalization Date of Hospital Admission Nov 24, 2016 at 12:19 Date of Discharge: Nov 25, 2016 Providers: Admitting Physician: Efra Mitchell MD Primary Care Physician: Tiffanie Richard Attending Physician: Efra Mitchell MD Diagnosis at Time of Discharge Diagnosis at Time of Discharge Diabetic ketoacidosis; Gastroenteritis; Type I diabetes mellitus; Hypothyroidism Brief History History of Present Illness (per admission note): The patient has had type I diabetes since approximately age of 5. She is managed with glargine 40 units each morning and multiple daily NovoLog injections of approximately 4-10 units. She performs carbohydrate 8 units per gram and correction insulin. She was in her usual state of health until she developed gastrointestinal malaise is 3 days prior to admission. One child at home has had a recent diarrheal illness. Denies prior to admission she began vomiting. Due to her inability to take food she stopped all of her insulin. She continued to have intractable vomiting with inadequate fluid intake, and presented to the emergency department with nausea vomiting and recognizable symptoms of DKA. Patient endorses a history of frequent abdominal pain nausea and vomiting, uncertain cause. She currently reports esophageal pain after vomiting. She has had no other signs of focal infection recently. She was taking medications regularly until 2 days prior to admission. She has had DKA approximately 6 times over her lifetime. Curiously the episodes of accelerated in the recent 10 years. She has no microvascular complications of diabetes. No other recent health problems. . Hospital Course # Diabetic ketoacidosis, acute, present on admission. - Resolved with intravenous insulin and aggressive IV hydration within 24 hours. - The patient was counseled on sick day and home management of incipient DKA ( continuation of basal insulin, hydration, correctional insulin, antiemetics) to preempt episodes of DKA due to insulin interruptions in the future # Type I diabetes mellitus, poorly controlled, present on admission. Hemoglobin A1c 9.3%. - The patient was counseled to auto titrate Lantus insulin from current 40 units every morning by 4 unit increments until fasting a.m. blood glucose is 80- 130 - Refer to endocrinology clinic for further management of carbohydrate ratio and NovoLog dosing # Systemic inflammatory response, present on admission, acute. WBC 19.7. Heart rate 129, respiratory rate 23, afebrile with stable blood pressure. Largely stress response to acute DKA. Possible viral gastroenteritis but no evidence for bacterial sepsis - No clinical signs of sepsis - Resolved prior to discharge # Gastroenteritis, acute, present on admission. Non-diarrheal illness with predominantly nausea and vomiting. - Symptoms largely resolved. - Antiemetics and hydration # GERD, acute on chronic. Exacerbated by vomiting. - Encouraged to continue ranitidine, and escalate to Prilosec if needed - Encouraged to take Tums or other by mouth antacid # Hypothyroidism, acute on chronic. TSH is markedly elevated indicating poor compliance with levothyroxine 200 g per day ambulatory dose. - Continue oral levothyroxine 200 g per day was increased to 225 g per day ( 112 g 2 tablets by mouth daily) - Reviewed dosing conditions and compliance issues; patient to separate thyroid dosing from fluoxetine dosing and allow appropriate pre-and post intervals for thyroid absorption - Referred to endocrinology clinic for further management of inadequately controlled hypothyroidism # Recurrent abdominal pain nausea and vomiting. This seems to recurrent problem contributing to her DKA - Zofran when necessary # Pseudotumor cerebri, chronic. -Stable # Chronic musculoskeletal pain. - Continue her outpatient prescription, but no new prescription given . Exam Vital Signs (Last) Date Time Temp Pulse Resp B/P Pulse Ox O2 Delivery O2 Flow Rate FiO2 11/25/16 08:33 37.0 89 14 146/81 99 Room Air Exam General: Well-nourished middle-age woman in no acute distress HEENT: sclerae anicteric, oral mucosa moist Neck: Supple Chest: clear to auscultation Cardiac: S1S2, regular Abdomen: non-tender Extremities: No pitting edema Neuro: A&O, funduscopic exam normal, cranial nerves symmetric, motor strength 5/ 5, Test 11/24/16 08:40 11/24/16 10:19 11/24/16 12:40 11/24/16 20:34 White Blood Count 19.7th/mm3 (3.8-10.1) Red Blood Count 4.90mil/mm3 (3.90-5.20) Hemoglobin 15.3g/dL (12.0-15.6) Hematocrit 44.1% (35.0-46.0) Mean Corpuscular Volume 90.0fL (81-100) Mean Corpuscular Hemoglobin 31.2pg (27.0-35.0) Mean Corpuscular Hemoglobin Concent 34.7% (32.0-37.0) Red Cell Distribution Width 12.6% (12.3-15.4) Platelet Count 319bil/L (150-400) Neutrophils (%) (Auto) 93.2% (40-74) Lymphocytes (%) (Auto) 2.4% (14-46) Monocytes (%) (Auto) 4.0% (4-12) Eosinophils (%) (Auto) 0% (0-5) Basophils (%) (Auto) 0.1% (0-3) Total Bilirubin 0.9mg/dL (0.0-1.2) Aspartate Amino Transf (AST/SGOT) 39U/L (0-50) Alanine Aminotransferase (ALT/SGPT) 29U/L (0-32) Alkaline Phosphatase 141U/L (25-150) Total Protein 8.3g/dL (6.4-8.4) Albumin 4.5g/dL (3.4-5.0) Lipase 9U/L (13-60) Ketones Small (Negative) Urine Color Straw (YELLOW) Urine Appearance Hazy (CLEAR,HAZY) Urine pH 5.5 (5.0-8.0) Urine Specific [place] 1.015 (1.003-1.035) Urine Protein 30mg/dL (NEG,TRACE) Urine Glucose (UA) 1000mg/dL (NEGATIVE) Urine Ketones 80mg/dL (NEGATIVE) Urine Occult Blood Small (NEGATIVE) Urine Nitrite Negative (NEGATIVE) Urine Bilirubin Negative (NEGATIVE) Urine Urobilinogen Normalmg/dL (NORMAL) Urine Leukocyte Esterase Negative (NEGATIVE) Urine RBC 0-2/hpf (0-2) Urine WBC 0-5/hpf (0-5) Urine Epithelial Cells Occasional/hpf (NONE-MOD) Urine Crystals None seen (NONE SEEN) Urine Bacteria None/hpf (NONE-FEW) Urine Hyaline Casts None/lpf (NONE) Urine Granular Casts None seen (NONE SEEN) Urine Waxy Casts None seen (NONE SEEN) Urine Red Blood Cell Casts None seen (NONE SEEN) Urine White Blood Cell Casts None seen (NONE SEEN) Urine Mucus None seen (None Seen) Urine Trichomonas None seen (NONE SEEN) Urine Yeast None (NONE SEEN) Urinalysis Comment None Urine Culture Reflexed Not indicated Hemoglobin A1c 9.3% (4.8-5.6) Thyroid Stimulating Hormone (TSH) 73.380uIU/mL (0.450-4.500) Magnesium Level 1.7mg/dL (1.6-2.6) Test 11/25/16 04:28 Sodium Level 137mEq/L (134-144) Potassium Level 3.3mEq/L (3.5-5.2) Chloride Level 103mEq/L (97-108) Carbon Dioxide Level 21mmol/L (18-29) Blood Urea Nitrogen 11mg/dL (6-20) Creatinine 0.80mg/dL (0.57-1.00) Estimat Glomerular Filtration Rate 114mL/min (>59) Glucose Level 158mg/dL (60-99) Calcium Level 7.5mg/dL (8.5-10.1) Discharge Medications Discharge Medications Fluoxetine (Fluoxetine) 40 Mg Capsule 40 MG PO DAILY (Reported) Insulin Glargine (Lantus U100 Insulin Vial) 100 Unit/Ml Vial 40 UNIT SUBQ AM ( Reported) Levothyroxine (Levothyroxine) 112 Mcg Tablet 112 MCG PO DAILY Prescribed by: EFRA MITCHELL MD As needed Insulin Aspart (NovoLOG U100 Insulin Vial) 100 U/Ml U 0-8 UNIT SUBQ TID PRN PRN sliding scale (Reported) patient's own sliding scale Ondansetron ODT (Zofran ODT) 8 Mg Tablet 8 MG PO Q4H PRN PRN For Nausea Prescribed by: EFRA MITCHELL MD Additional med instructions The thyroid hormone level is very low. You should take your levothyroxine very regularly on an empty stomach. It should be at least 2 hours after any previous food or complex beverage, and at least one hour prior to any further food, beverages or pills. It is important that you get into a regular routine that allows her thyroid hormone to be absorbed well by your body. You should have a recheck of her thyroid hormone level in approximately 4-6 weeks. Followup Plan Follow-up plan A referral to endocrinology for diabetes and thyroid management has been previously submitted and should be scheduled. Contact gynecology clinic if you do not have a date for this appointment within the next month. Discharge Diet: Diabetic Discharge Activity: No restrictions Patient Instructions You should take your glargine insulin every day. If you experience nausea vomiting you may reduce the dose temporarily to 26 units. Take at least this much no matter other you are eating. If you experience nausea and vomiting, he should try to maintain hydration as best you can with small sips of fluid continuously. We should check your blood sugar every 1-2 hours and take your correctional NovoLog dose at each time (every 1-2 hours) to keep your blood sugar under 200 until you are feeling well and resuming normal food and insulin. This regimen should prevent you from slipping into DKA. Follow-up Provider: Tiffanie Richard Follow-up with PCP in: 1 week Provider: Efra Mitchell MD Follow-up in: Other (scheduled upcoming endocrinology clinic within 1 month) Time spent 35 minutes copies to: Efra Mitchell MD; Tiffanie Richard Jeffrey W MD Nov 25, 2016 15:57
== END 2016-11-25 12:27 | disposition home or self-care (01) | DRG 639 ==
LOC: SED 08:17 → CCU 12:19
PROVIDERS: ADMIT Internal Medicine; ATTEND Internal Medicine
DX: E10.10 Type 1 diabetes mellitus with ketoacidosis without coma (principal); E03.9 Hypothyroidism, unspecified; G43.909 Migraine, unspecified, not intractable, without status migrainosus; I10 Essential (primary) hypertension; K52.9 Noninfective gastroenteritis and colitis, unspecified; G93.2 Benign intracranial hypertension; M79.1 Myalgia; Z79.4 Long term (current) use of insulin